=== PATIENT | male | born 1995 | race Caucasian/White ===

== ENCOUNTER → 2018-05-16 | Emergency (ER) | payer OTHER ==
[~2018-05-16] VITALS: Ht 182.9 cm; Wt 86.4 kg
[2018-05-16 22:30] VITALS: BP 133/59; PULSE 95
== END ==
LOC: COL.ER 21:09
DX: K91.841 Postprocedural hemorrhage of a digestive system organ or structure following other procedure (principal); Z90.89 Acquired absence of other organs

== ENCOUNTER 2020-06-30 15:08 | Emergency (ER) | payer OTHER ==
[~2020-06-30] VITALS: Ht 180.3 cm; Wt 90.9 kg
[2020-06-30 15:20] VITALS: BP 122/74; TEMP 98.5
[2020-06-30 15:54] LABS: BASO # 0.1 (0.0-0.2); BASO % 0.4 % (0.0-2.0); EOS # 0.1 (0.0-0.7); EOS % 0.7 % (0-4.0); GRAN # 8.5 (1.4-6.5); GRAN % 71.3 % (42.2-75.2); HEMATOCRIT 49.7 % (42.0-52.0); HEMOGLOBIN 17.6 g/dl (13.5-18.0); LYMPH # 2.5 (1.2-3.4); LYMPH % 20.8 % (20.0-51.0); MEAN CELL VOLUME 86 fl (80.0-100.0); MEAN CORPUSCULAR HEMOGLOBIN 31 pg (27.0-31.0); MEAN CORPUSCULAR HGB CONC 35 g/dl (33.0-37.0); MEAN PLATELET VOLUME 8.8 fl (7.4-10.4); MONO # 0.8 (0.1-0.6); MONO % 6.5 % (1.7-9.3); PLATELET COUNT 358 K/mm3 (130-400); RED BLOOD COUNT 5.75 M/mm3 (4.20-5.60); REDCELL DISTRIBUTION WIDTH-CV 11.8 % (11.5-14.5)
[2020-06-30 16:12] LABS: ALANINE AMINOTRANSFERASE 19 U/L (4-49); ALBUMIN 4.8 gm/dL (3.5-5.0); ALKALINE PHOSPHATASE 96 U/L (50-136); ANION GAP 11 mmol/L (7-16); AST,SGOT 30 U/L (15-37); BILIRUBIN,TOTAL 0.8 mg/dL (0.0-1.0); BLOOD UREA NITROGEN 15 mg/dL (9-20); CALCIUM 10.1 mg/dL (8.4-10.2); CARBON DIOXIDE 28 mmol/L (22-30); CHLORIDE 100 mmol/L (98-107); CREATININE, serum 1.24 (0.66-1.25); GLUCOSE 108 mg/dL (74-106); POTASSIUM 4.5 mmol/L (3.4-5.0); SODIUM 140 mmol/L (137-145); TOTAL PROTEIN 8.2 gm/dL (6.4-8.2)
[2020-06-30 16:14] LABS: C-REACTIVE PROTEIN < 0.5 mg/dL (0.0-0.9); ERYTHROCYTE SEDIMENTATION RATE 8 mm/hr (0-15)
[2020-06-30 16:38] VITALS: PULSE 86
== END 2020-06-30 16:38 | disposition home or self-care (01) ==
LOC: COL.ER 15:08
PROVIDERS: Physician Assistant
DX: R20.2 Paresthesia of skin (principal); Z88.6 Allergy status to analgesic agent

== ENCOUNTER → 2021-12-23 | Outpatient (CLI) | payer OTHER ==
[~2021-12-23] MED LIST: CELEBREX 1100 MG/CAP PO; LEXAPRO 10MG10 MG PO; LIDODERM 5% PATC1 EA TP; PROZAC 10MG10 MG PO; UNISOM25 MG PO
== END ==
LOC: COL.RAD 12:19
DX: M93.272 Osteochondritis dissecans, left ankle and joints of left foot (principal)